=== PATIENT | male | born 1975 | race Caucasian/White ===

== ENCOUNTER 2024-01-16 03:08 | Inpatient (IN) | payer OTHER ==
[~2024-01-16] VITALS: Ht 190.5 cm; Wt 167.8 kg
[2024-01-16] MEDS: ONDANSETRON HCL INJ 2MG/ML 2ML 2 MG/ML VIAL IV STA (03:21)
[2024-01-16] MEDS ORDERED: ONDANSETRON HCL INJ 2MG/ML 2ML 2 MG/ML VIAL ONE ×2 (03:22→04:03)
[2024-01-16] MEDS: DICYCLOMINE HCL 20 MG/2 ML VIAL IM ONE (03:22)
[2024-01-16] MEDS ORDERED: DICYCLOMINE HCL 20 MG/2 ML VIAL IM ONE (03:22)
[2024-01-16 03:23] LABS: BASOPHILS % 0.4 % (0.0-1.0); EOSINOPHILS # (AUTO) 0.1 (0.0-0.4); EOSINOPHILS % 1.3 % (0.0-6.0); HEMATOCRIT 45.2 % (38.2-49.6); HEMOGLOBIN 16.5 g/dL (14.0-18.0); LYMPHOCYTES # (AUTO) 2.9 (1.0-3.2); LYMPHOCYTES % 30.8 % (18.0-39.1); MEAN CORPUSCULAR HEMOGLOBIN 30.4 pg (28-32); MEAN CORPUSCULAR HGB CONC 36.5 g/dL (31-35); MEAN CORPUSCULAR VOLUME 83.2 fL (81-99); MONOCYTES # (AUTO) 0.5 (0.2-0.8); MONOCYTES % 5.4 % (4.4-11.3); NEUTROPHILS # (AUTO) 5.8 (2.1-6.9); PLATELET COUNT 169 x10e3/uL (140-360); RED BLOOD COUNT 5.43 x10e6/uL (4.3-5.7); RED CELL DISTRIBUTION WIDTH 11.9 % (11.7-14.4)
[2024-01-16 03:44] LABS: ALANINE AMINOTRANSFERASE 28 IU/L (0-55); ALBUMIN 4.5 g/dL (3.5-5.0); ALBUMIN/GLOBULIN RATIO 1.1 (0.8-2.0); ALKALINE PHOSPHATASE 45 IU/L (40-150); ANION GAP 16.5 mmol/L (8-16); BILIRUBIN,TOTAL 0.7 mg/dL (0.2-1.2); BLOOD UREA NITROGEN 9 mg/dL (7-26); BUN/CREATININE RATIO 9 (6-25); CALCIUM 9.7 mg/dL (8.4-10.2); CARBON DIOXIDE 24 mmol/L (22-29); CHLORIDE 103 mmol/L (98-107); CREATINE KINASE 177 IU/L (30-200); CREATININE, SERUM 1.05 mg/dL (0.72-1.25); EST GLOMERULAR FILTRATION RATE 88 ML/MIN (>=60); GLUCOSE 144 mg/dL (74-118); POTASSIUM 3.5 mmol/L (3.5-5.1); SODIUM 140 mmol/L (136-145); TOTAL PROTEIN 8.7 g/dL (6.5-8.1)
[2024-01-16 03:50] LABS: TROPONIN I < 0.001 ng/mL (0-0.300)
[2024-01-16] MEDS ORDERED: MAGNESIUM/ALUMINUM/SIMETHICONE 30 ML UDC ONE (03:57)
[2024-01-16] MEDS: LIDOCAINE VISC 2% SOLN 15 ML UDC PO ONE (03:57)
[2024-01-16] MEDS ORDERED: BELLADONNA ALK/PHENOBARBITAL 5 ML UDC ONE (03:58)
[2024-01-16] MEDS ORDERED: ONDANSETRON HCL INJ 2MG/ML 2ML 2 MG/ML VIAL IV STA (04:00)
[2024-01-16] MEDS ORDERED: METOCLOPRAMIDE HCL 10 MG/2ML VIAL ONE (04:05)
[2024-01-16] MEDS ORDERED: IOPAMIDOL 370 MG/ML 100 ML INFUS..BTL INJ ONE (04:10)
[2024-01-16] MEDS: MAGNESIUM/ALUMINUM/SIMETHICONE 30 ML UDC PO ONE (04:11)
[2024-01-16] MEDS: BELLADONNA ALK/PHENOBARBITAL 5 ML UDC PO ONE (04:12)
[2024-01-16] MEDS: METOCLOPRAMIDE HCL 10 MG/2ML VIAL IV ONE (04:12)
[2024-01-16] MEDS: Morphine 4mg INJECTION 4 MG/ML INJ IV ONE (04:37)
[2024-01-16] MEDS ORDERED: Morphine 4mg INJECTION 4 MG/ML INJ ONE (04:39)
[2024-01-16] MEDS ORDERED: Morphine 4mg INJECTION 4 MG/ML INJ IV PRN (05:15)
[2024-01-16] MEDS ORDERED: HYDRALAZINE HCL 20 MG/ML VIAL ONE (05:23)
[2024-01-16] MEDS ORDERED: PIPERACILLIN/TAZOBACTAM 3.375 GM VIAL ONE (05:23)
[2024-01-16] MEDS ORDERED: SODIUM CHLORIDE 0.9% 1000ML 1,000 ML ONE (05:24)
[2024-01-16] MEDS: SODIUM CHLORIDE 0.9% 1000ML 1,000 ML IV SCH (05:30)
[2024-01-16] MEDS: HYDRALAZINE HCL 20 MG/ML VIAL IV PRN (05:31)
[2024-01-16 05:54] LABS: PROTHROMBIN TIME 13.4 seconds (11.9-14.5)
[2024-01-16 05:55] LABS: PARTIAL THROMBOPLASTIN TIME 29.4 seconds (23.8-35.5)
[2024-01-16] MEDS: HYDROMORPHONE 1MG/1ML INJ IV STA (06:10)
[2024-01-16] MEDS ORDERED: HYDROMORPHONE 1MG/1ML INJ ONE (06:12)
[2024-01-16] MEDS: HYDRALAZINE HCL 20 MG/ML VIAL IV ONE (06:32)
[2024-01-16 08:00] VITALS: BP 178/101; PULSE 80; RESP 18; TEMP 97.7; O2SAT 98
[2024-01-16 08:32] VITALS: BP 173/101; PULSE 80; RESP 18; TEMP 97.7; O2SAT 98
[2024-01-16] MEDS: HYDROMORPHONE HCL 2 MG TAB PO PRN (11:59)
[2024-01-16 12:35] VITALS: BP 197/116; PULSE 71; RESP 18; TEMP 98.1; O2SAT 100
[2024-01-16] MEDS: HYDROMORPHONE 1MG/1ML INJ IV PRN (13:45)
[2024-01-16] MEDS: ONDANSETRON HCL INJ 2MG/ML 2ML 2 MG/ML VIAL IV PRN (18:17)
[2024-01-16 19:15] VITALS: BP 176/95; PULSE 86; RESP 18; TEMP 98.4; O2SAT 97
[2024-01-16 20:00] VITALS: BP 176/95; PULSE 86; RESP 18; TEMP 98.4; O2SAT 97
[2024-01-16 23:12] VITALS: BP 135/83; PULSE 84; RESP 18; TEMP 98.4; O2SAT 98
[2024-01-17] VITALS (7 sets, daily range): BP systolic 133–162; BP diastolic 89–104; PULSE 77–92; RESP 17–18; TEMP 98–99.7; O2SAT 96–98
[2024-01-17 05:19] LABS: BASOPHILS % 0.2 % (0.0-1.0); EOSINOPHILS % 0.2 % (0.0-6.0); HEMOGLOBIN 15.6 g/dL (14.0-18.0); LYMPHOCYTES # (AUTO) 2.2 (1.0-3.2); LYMPHOCYTES % 15.1 % (18.0-39.1); MEAN CORPUSCULAR HEMOGLOBIN 30.2 pg (28-32); MEAN CORPUSCULAR HGB CONC 36.3 g/dL (31-35); MEAN CORPUSCULAR VOLUME 83.3 fL (81-99); MONOCYTES # (AUTO) 1.2 (0.2-0.8); MONOCYTES % 8.2 % (4.4-11.3); NEUTROPHILS # (AUTO) 10.8 (2.1-6.9); NEUTROPHILS % 75.9 % (38.7-80.0); PLATELET COUNT 173 x10e3/uL (140-360); RED BLOOD COUNT 5.16 x10e6/uL (4.3-5.7); RED CELL DISTRIBUTION WIDTH 11.9 % (11.7-14.4); WHITE BLOOD COUNT 14.26 x10e3/uL (4.8-10.8)
[2024-01-17 05:54] LABS: ALBUMIN 3.8 g/dL (3.5-5.0); ANION GAP 15.1 mmol/L (8-16); BILIRUBIN,TOTAL 1.6 mg/dL (0.2-1.2); CALCIUM 9.4 mg/dL (8.4-10.2); CREATININE, SERUM 0.91 mg/dL (0.72-1.25); POTASSIUM 4.1 mmol/L (3.5-5.1); TOTAL PROTEIN 7.7 g/dL (6.5-8.1)
[2024-01-17] MEDS ORDERED: BUPIVACAINE 0.25% 30ML SDV ONE (11:59)
[2024-01-17] MEDS ORDERED: FENTANYL CITRATE/PF 100MCG/2 ML INJ ONE (13:55)
[2024-01-17] MEDS ORDERED: KETOROLAC TROMETHAMINE 30 MG/ML VIAL IV PRN (14:45)
[2024-01-17] MEDS ORDERED: LIDOCAINE HCL 2% LOCAL INJ 5 ML SDV VIAL INJ ONE (16:55)
[2024-01-17] MEDS ORDERED: DEXAMETHASONE SOD PHOS INJ 4 MG/ML SDV ONE (16:55)
[2024-01-17] MEDS ORDERED: ROCURONIUM BROMIDE 10 MG/ML 5ML VIAL IV ONE (16:55)
[2024-01-17] MEDS ORDERED: SEVOFLURANE INHAL SOLN 250 ML PEN BTL ONE (16:55)
[2024-01-17] MEDS ORDERED: ONDANSETRON HCL INJ 2MG/ML 2ML 2 MG/ML VIAL ONE (16:55)
[2024-01-17] MEDS ORDERED: PROPOFOL IV EMULSION 10 MG/ML 20 ML VIAL ONE (16:55)
[2024-01-17] MEDS ORDERED: KETOROLAC TROMETHAMINE 30 MG/ML VIAL ONE (16:55)
[2024-01-17] MEDS ORDERED: SUCCINYLCHOLINE CHLORIDE 20 MG/ML 10ML VIAL ONE (16:55)
[2024-01-17] MEDS: HYDROCODONE/APAP 7.5MG-325MG 1 EA TAB PO PRN (21:13)
[2024-01-18 03:36] VITALS: BP 151/98; PULSE 70; RESP 18; TEMP 98.8; O2SAT 98
[2024-01-18 05:36] LABS: BASOPHILS % 0.2 % (0.0-1.0); EOSINOPHILS % 0.1 % (0.0-6.0); HEMOGLOBIN 14.4 g/dL (14.0-18.0); LYMPHOCYTES # (AUTO) 2.3 (1.0-3.2); LYMPHOCYTES % 17.1 % (18.0-39.1); MEAN CORPUSCULAR HEMOGLOBIN 29.2 pg (28-32); MEAN CORPUSCULAR HGB CONC 33.5 g/dL (31-35); MEAN CORPUSCULAR VOLUME 87.2 fL (81-99); MONOCYTES # (AUTO) 0.9 (0.2-0.8); MONOCYTES % 6.4 % (4.4-11.3); NEUTROPHILS # (AUTO) 10.2 (2.1-6.9); NEUTROPHILS % 75.8 % (38.7-80.0); PLATELET COUNT 163 x10e3/uL (140-360); RED BLOOD COUNT 4.93 x10e6/uL (4.3-5.7); RED CELL DISTRIBUTION WIDTH 11.9 % (11.7-14.4); WHITE BLOOD COUNT 13.49 x10e3/uL (4.8-10.8)
[2024-01-18 07:19] LABS: ALBUMIN 3.5 g/dL (3.5-5.0); ALBUMIN/GLOBULIN RATIO 0.9 (0.8-2.0); ANION GAP 11.9 mmol/L (8-16); BILIRUBIN,TOTAL 1.4 mg/dL (0.2-1.2); CALCIUM 9.2 mg/dL (8.4-10.2); POTASSIUM 3.9 mmol/L (3.5-5.1); TOTAL PROTEIN 7.2 g/dL (6.5-8.1)
[2024-01-18 08:50] VITALS: BP 151/98; PULSE 70; RESP 18; TEMP 98.8; O2SAT 98
[2024-01-18 13:24] VITALS: BP 170/110; PULSE 69; RESP 17; TEMP 97.9; O2SAT 99
== END 2024-01-18 16:05 | disposition home or self-care (01) | DRG 418 ==
LOC: ER 03:19 → ERHOLD 05:16 → MED/SURG 06:38
PROVIDERS: ADMIT Surgery; ATTEND Surgery
PROC: 0FT44ZZ Resection of Gallbladder, Percutaneous Endoscopic Approach (ICD-10-PCS; principal; 2024-01-17 12:56)
DX: K80.00 Calculus of gallbladder with acute cholecystitis without obstruction (principal); Z68.42 Body mass index [BMI] 45.0-49.9, adult; K82.A1 Gangrene of gallbladder in cholecystitis; E66.01 Morbid (severe) obesity due to excess calories
CPT/HCPCS: 36415; 74177; 80053; 82550; 83690; 84484; 85025; 85610; 85730; 88304; 88342; 93005; 93306; 96361; 99284; C1766; J0330; J0360; J1100; J1170; J1885; J2001; J2270; J2405; J2543; J2765; J7030; Q9967; U0002